=== PATIENT | female | born 1995 | race African-American/Black ===

== ENCOUNTER 2017-10-31 13:49 | Emergency (ER) | payer OTHER ==
[2017-10-31] MEDS ORDERED: ALBUTEROL SULFATE HFA (90 MCG/PUFF) 8 GM MDI (1 MDI/ER DISP) IH PRN (14:32)
--- NOTE | 2017-10-31 14:35 | ER Document Report ---
ED General - General Chief Complaint: Breathing Difficulty Stated Complaint: DIPFFICULTY BREATHING Time Seen by Provider: 10/31/17 14:17 Mode of Arrival: Medic Information source: Patient Notes: 22-year-old female presents with history of asthma with concerns of wheezing. Patient notes that she [place] [employer] and had sudden episode of shortness of breath wheezing she felt anxious and her symptoms worsen. Patient notes she used an inhaler from [employer] and her symptoms resolved. By time EMS arrived patient notes symptoms were better. She denies any fevers or chills denies any nausea vomiting or diarrhea currently patient is asymptomatic TRAVEL OUTSIDE OF THE [place] IN LAST 30 DAYS: No - HPI Onset: Just prior to arrival Onset/Duration: Sudden Quality of pain: No pain Severity: Moderate Pain Level: Denies Associated symptoms: Shortness of breath Exacerbated by: Denies Relieved by: Other - Albuterol Similar symptoms previously: Yes Recently seen / treated by doctor: No Past Medical History - Social History Smoking Status: Never Smoker Cigarette use (# per day): No Chew tobacco use (# tins/day): No Smoking Education Provided: No Family History: Reviewed & Not Pertinent Review of Systems - Review of Systems Notes: PHYSICAL EXAMINATION: GENERAL: Well-appearing, well-nourished and in no acute distress. HEAD: Atraumatic, normocephalic. EYES: Pupils equal round extraocular movements intact, conjunctiva are normal. ENT: Nares patent NECK: Normal range of motion LUNGS: No respiratory distress Musculoskeletal: Normal range of motion NEUROLOGICAL: Normal speech, normal gait. PSYCH: Normal mood, normal affect. SKIN: Warm, Dry, normal turgor, no rashes or lesions noted. Course - Re-evaluation Re-evalutation: 10/31/17 14:34 On examination patient's completely asymptomatic looks well is in no distress, she will be given inhaler here as well as an inhaler prescription for home. Patient overall is asymptomatic at this time I do believe that anxiety did play a part of her asthma exacerbation as well After performing a Medical Screening Examination, I estimate there is LOW risk for ACUTE CORONARY SYNDROME, PULMONARY EMBOLI, RESPIRATORY FAILURE, SEPSIS OR MENINGITIS, thus I consider the discharge disposition reasonable. I have reevaluated this patient multiple times and no significant life threatening changes are noted. The patient and I have discussed the diagnosis and risks, and we agree with discharging home with close follow-up. We also discussed returning to the Emergency Department immediately if new or worsening symptoms occur. We have discussed the symptoms which are most concerning (e.g., changing or worsening pain, trouble swallowing or breathing, neck stiffness, fever) that necessitate immediate return. Discharge - Discharge Clinical Impression: Asthma exacerbation Qualifiers: Asthma severity: mild Asthma persistence: intermittent Qualified Code(s): J45.21 - Mild intermittent asthma with (acute) exacerbation Condition: Stable Disposition: HOME, SELF-CARE Instructions: Asthma ([facility]) Prescriptions: Albuterol Sulfate [Proair HFA Inhalation Aerosol 8.5 gm MDI] 2 puff IH Q4H PRN # 1 mdi PRN Reason: Referrals: JAYDEN YANCEY MD [Primary Care Provider] - Follow up as needed
== END 2017-10-31 14:45 | disposition home or self-care (01) ==
LOC: ER 13:49
DX: J45.21 Mild intermittent asthma with (acute) exacerbation (principal); R06.02 Shortness of breath; F41.9 Anxiety disorder, unspecified
CPT/HCPCS: 99284; J3490